=== PATIENT | female | born 1995 | race Two or more races ===

== ENCOUNTER 2020-04-17 08:13 | Emergency (ER) | payer OTHER ==
[~2020-04-17] VITALS: Ht 152.4 cm; Wt 68.5 kg
[2020-04-17] MEDS ORDERED: MUCINEX DM ER1 EAC1 PO (13:07)
[2020-04-17] MEDS ORDERED: TESSALON PERLE100 M1 PO (13:07)
== END 2020-04-17 13:25 | disposition home or self-care (01) ==
LOC: ER 08:13
DX: J06.9 Acute upper respiratory infection, unspecified (principal); R05 Cough; Z03.818 Encounter for observation for suspected exposure to other biological agents ruled out